=== PATIENT | female | born 1985 | race Caucasian/White ===

== ENCOUNTER 2017-03-24 12:12 | Emergency (ER) | payer OTHER ==
[~2017-03-24] VITALS: Ht 167.6 cm; Wt 99.8 kg
[2017-03-24 12:26] VITALS: BP 123/78
--- NOTE | 2017-03-24 12:33 | NUR ---
Patient ambulated to bed 08.
--- NOTE | 2017-03-24 12:34 | NUR ---
31/F BIB FAMILY C/O SORE THROAT, RUNNY NOSE, HEADACHE, LOWER BACK ACHING X1 DAY. PT DENIES N/V/D; SKIN IS PINK/WARM/DRY; AAOX4 WITH EVEN AND STEADY GAIT; LUNGS CLEAR BL; HR EVEN AND REGULAR; PT DENIES ANY FEVER, CP, SOB, OR COUGH AT THIS TIME; PATIENT STATES PAIN OF 3/10 AT THIS TIME; VSS; PATIENT POSITIONED FOR COMFORT; HOB ELEVATED; BEDRAILS UP X2; BED DOWN. ER MD MADE AWARE OF PT STATUS.
--- NOTE | 2017-03-24 12:39 | NUR ---
Dr. Matthews evaluating patient at bedside.
[2017-03-24] MEDS: NACL 0.9% 1,000 ML IV ONE (13:05)
[2017-03-24] MEDS: METOCLOPRAMIDE 10 MG/2 ML INJ VIAL IVP ONE (13:06)
[2017-03-24] MEDS: diphenhydrAMINE 50 MG/ML VIAL IVP ONE (13:06)
--- NOTE | 2017-03-24 13:11 | NUR ---
Patient appears to be resting comfortably in bed. Vital Signs within normal limits. Respirations even and unlabored.WILL CONTINUE TO MONITOR.
[2017-03-24 13:40] VITALS: BP 110/68
== END 2017-03-24 13:40 | disposition home or self-care (01) ==
LOC: MED 12:13
DX: J02.9 Acute pharyngitis, unspecified (principal); R51 Headache; Z88.8 Allergy status to other drugs, medicaments and biological substances
CPT/HCPCS: 81002; 81025; 96361; 96374; 96375; 99284; J1200; J2765; J7030

== ENCOUNTER 2017-07-06 08:12 | Emergency (ER) | payer OTHER ==
[~2017-07-06] VITALS: Ht 165.1 cm; Wt 109.9 kg
[2017-07-06 08:18] VITALS: BP 130/86
--- NOTE | 2017-07-06 08:23 | NUR ---
Patient ambulated to bed 4. RN evaluating patient at bedside.
--- NOTE | 2017-07-06 08:33 | NUR ---
31 YO FEMALE A&O, C/O LT LEG PAIN 10/10 FROM KNEE DOWN X1 WK WORST THE LAST 3 DAYS, DENIES INJURY.
[2017-07-06 09:06] VITALS: BP 112/87
--- NOTE | 2017-07-06 09:10 | NUR ---
Patient discharged with v/s stable. Written and verbal after care instructions given and explained. Patient alert, oriented and verbalized understanding of instructions. Ambulatory with steady gait. All questions addressed prior to discharge. ID band removed. Patient advised to follow up with PMD. Rx of CIPRO, NORCO given. Patient educated on indication of medication including possible reaction and side effects. Opportunity to ask questions provided and answered.
== END 2017-07-06 09:10 | disposition home or self-care (01) ==
LOC: MED 08:12
DX: N39.0 Urinary tract infection, site not specified (principal); M79.1 Myalgia; M25.562 Pain in left knee; Z88.6 Allergy status to analgesic agent
CPT/HCPCS: 81002; 81025; 99283

== ENCOUNTER 2017-07-07 07:25 | Emergency (ER) | payer OTHER ==
[~2017-07-07] VITALS: Ht 170.2 cm; Wt 110.9 kg
[2017-07-07 07:33] VITALS: BP 122/88
--- NOTE | 2017-07-07 08:00 | NUR ---
PT STATE LEFT KNEE PAIN RADIATING TO TIB/FIB AREA X 4 DAYS ---DENIES INJURY, SWELLING TO LEFT ANKLE, NO REDNESS, NO TENDERNESS TO TOUCH. DENIES N/V/D; SKIN IS PINK/WARM/DRY; AAOX4 WITH EVEN AND STEADY GAIT; LUNGS CLEAR BL; HR EVEN AND REGULAR; PT DENIES ANY FEVER, CP, SOB, OR COUGH AT THIS TIME; PATIENT STATES PAIN OF 8/10 AT THIS TIME; VSS; PATIENT POSITIONED FOR COMFORT; HOB ELEVATED; BEDRAILS UP X2; BED DOWN. ER MD MADE AWARE OF PT STATUS.
--- NOTE | 2017-07-07 08:04 | NUR ---
PT LEFT VIA WHEELCHAIR PER X-RAY TECH.
--- NOTE | 2017-07-07 08:12 | NUR ---
PT BACK TO BED 8
[2017-07-07 09:50] VITALS: BP 120/80
== END 2017-07-07 09:50 | disposition home or self-care (01) ==
LOC: MED 07:25
DX: S83.92XA Sprain of unspecified site of left knee, initial encounter (principal); S93.402A Sprain of unspecified ligament of left ankle, initial encounter; Z88.6 Allergy status to analgesic agent; X58.XXXA Exposure to other specified factors, initial encounter; Y93.89 Activity, other specified; Y92.89 Other specified places as the place of occurrence of the external cause; Y99.8 Other external cause status
CPT/HCPCS: 73562; 73610; 99284

== ENCOUNTER 2020-05-12 11:28 | Emergency (ER) | payer OTHER ==
[~2020-05-12] VITALS: Ht 165.1 cm; Wt 115.2 kg
[2020-05-12 11:49] VITALS: BP 132/80
--- NOTE | 2020-05-12 14:08 | NUR ---
PATIENT LEFT WITHOUT BEING SEEN BY DR. Laboy. NO FURTHER CARE PROVIDED FOR PATIENT.
== END 2020-05-12 14:08 | disposition left against medical advice (07) ==
LOC: MED 11:28
DX: K08.89 Other specified disorders of teeth and supporting structures (principal); Z53.21 Procedure and treatment not carried out due to patient leaving prior to being seen by health care provider

== ENCOUNTER 2022-04-24 13:13 | Emergency (ER) | payer OTHER ==
[~2022-04-24] VITALS: Ht 152.4 cm; Wt 127.5 kg
[2022-04-24 13:22] VITALS: BP 152/98
--- NOTE | 2022-04-24 13:27 | NUR ---
PT TO WAIT IN LOBBY.
--- NOTE | 2022-04-24 13:51 | NUR ---
PT EVALUATED BY PA AT THIS TIME IN [facility]
--- NOTE | 2022-04-24 13:56 | NUR ---
PT TO WAIT IN LOBBY.
[2022-04-24] MEDS ORDERED: BENZ-300 PO (14:01)
[2022-04-24] MEDS ORDERED: ACET-10509 PO (14:01)
[2022-04-24] MEDS ORDERED: PROM118S5 PO (14:01)
--- NOTE | 2022-04-24 15:01 | NUR ---
PT PROVIDED WITH 2x ERNÉE BANDAGES AND ICE FOR SELF APPLICATION AT HOME. NOTIFIED.
--- NOTE | 2022-04-24 15:37 | NUR ---
Patient discharged with v/s stable. Written and verbal after care instructions given FOR ACUTE KNEE PAIN AND UPPER RESPIRATORY INFECTION and explained. Patient alert, oriented and verbalized understanding of instructions. Ambulatory with steady gait. All questions addressed prior to discharge. ID band removed. Patient advised to follow up with PMD. Rx of TYNENOL, CEPACOL, AND PROMETHAZINE given. Patient educated on indication of medication including possible reaction and side effects. Opportunity to ask questions provided and answered.
--- NOTE | 2022-04-24 15:50 | NUR ---
NO NURSING INTERVENTIONS ORDERED, NO COMPLETE NEEDED.
== END 2022-04-24 15:37 | disposition home or self-care (01) ==
LOC: MED 13:13
DX: J06.9 Acute upper respiratory infection, unspecified (principal); M25.561 Pain in right knee; Z79.899 Other long term (current) drug therapy; Z88.6 Allergy status to analgesic agent
CPT/HCPCS: 99283

== ENCOUNTER 2024-06-14 14:01 | Emergency (ER) | payer SELFPAY ==
[~2024-06-14] VITALS: Ht 167.6 cm; Wt 127.5 kg
[~2024-06-14 14:01] MED LIST: ACET-10509 PO; BENZ-300 PO; PROM118S5 PO
[2024-06-14 14:22] VITALS: BP 139/96; PULSE 83; RESP 19; TEMP 98; O2SAT 98
[2024-06-14] MEDS ORDERED: ACET-8905 PO (15:50)
[2024-06-14] MEDS ORDERED: LID5T TP (15:50)
[2024-06-14] MEDS ORDERED: METH4TAB1 PO (15:50)
[2024-06-14 16:07] VITALS: BP 139/96; PULSE 83; RESP 19; TEMP 98; O2SAT 98
[2024-06-14 16:17] LABS: BILIRUBIN,URINE NEGATIVE (NEGATIVE); BLOOD, URINE NEGATIVE (NEGATIVE); COLOR,URINE YELLOW (YELLOW); LEUKOCYTE ESTERASE ,URINE TRACE (NEGATIVE); NITRITE, URINE NEGATIVE (NEGATIVE); PROTEIN,URINE NEGATIVE (NEGATIVE); UGLUCOSE NEGATIVE (NEGATIVE)
[2024-06-14 16:18] LABS: APPEARANCE,URINE SLIGHTLY HAZY (CLEAR)
[2024-06-14 16:20] LABS: BACTERIA,URINE 1+ /HPF (None Seen); MUCUS,URINE None Seen /LPF (None Seen); RBC,URINE 0 /HPF (0-5); SQUAMOUS EPITHELIAL CELL,UR 0-3 (FEW) /LPF (0-3 (FEW)); WBC,URINE 0-5 /HPF (0-5)
== END 2024-06-14 16:00 | disposition home or self-care (01) ==
LOC: MED 14:01
DX: S39.012A Strain of muscle, fascia and tendon of lower back, initial encounter (principal); M54.16 Radiculopathy, lumbar region; X58.XXXA Exposure to other specified factors, initial encounter; Y93.89 Activity, other specified; Y92.89 Other specified places as the place of occurrence of the external cause; Y99.8 Other external cause status
CPT/HCPCS: 81001; 81025; 99283